=== PATIENT | female | born 1980 | race Caucasian/White ===

== ENCOUNTER 2017-10-10 04:17 | Emergency (ER) | payer MEDICAID, OTHER ==
[~2017-10-10] VITALS: Ht 154.9 cm; Wt 50.0 kg
[2017-10-10 04:20] VITALS: Ht 154.9 cm; Wt 50.0 kg
[2017-10-10] MEDS ORDERED: NAPR-260 PO (06:44)
[2017-10-10] MEDS ORDERED: BACI28.34 TOP (06:44)
--- NOTE | 2017-10-10 06:50 | ERD ---
ER Documentation Chief Complaint Chief Complaint bilat feet pain, growth on toe, "if there's time to check, vag/rectal bleed HPI 6-year-old female comes in with bilateral foot blisters, vaginal bleeding. Patient has a history of methamphetamine abuse and drinks alcohol, patient reports that she is gotten blisters on her feet over the last few days that are painful. They are to both of her feet, she denies any trauma. She also states that she has had vaginal bleeding over the last 3 days going through about 3 pads. She denies any headaches, loss conscious or vomiting associated but also has contusions to both of her eyes. ROS All systems reviewed and are negative except as per history of present illness. Medications Home Meds Active Scripts Naproxen* (Naprosyn*) 500 Mg Tablet, 500 MG PO BID Y for PAIN AND/OR INFLAMMATION, #30 TAB Prov:KURT MEHTA PA-C 10/10/17 Bacitracin* (Bacitracin Zinc Oint*) 28.35 Gm Oint, 1 APPLIC TOP BID, #1 TUB APPLI TO Prov:KURT MEHTA PA-C 10/10/17 Allergies Allergies: Coded Allergies: No Known Allergy (Unverified , 10/10/17) PMhx/Soc Medical and Surgical Hx: pt denies Medical Hx, pt denies Surgical Hx Hx Alcohol Use: Yes Hx Substance Use: Yes Hx Tobacco Use: No Smoking Status: Never smoker Physical Exam Vitals Vital Signs Date Time Temp Pulse Resp B/P Pulse Ox O2 Delivery O2 Flow Rate FiO2 10/10/17 04:20 97.3 88 18 137/84 100 Physical Exam General: Disheveled in appearance, no acute distress HEENT: Head is normocephalic, atraumatic. No scleral icterus. Pupils are equal , round, and reactive. Periorbital ecchymosis of both eyes. Extraocular movements intact. Oral mucous membranes are moist. Neck: Supple. Nontender. Lungs: Clear to auscultation. Normal air movement. Heart: Regular rate and rhythm. S1 and S2 are normal. No murmurs, gallops, or rubs. Abdomen: Soft, nontender, nondistended. Bowel sounds are normoactive. : Vaginal examination shows evidence of blood that is on the external vagina, there is no active hemorrhage. Extremities: No clubbing or cyanosis. Normal pulses. Moving extremities x 4. No weakness. Neurologic: Alert and oriented 3. No focal deficits. Skin: Both of the bottom of her feet have multiple blisters. Procedures/MDM ED course: The patient's feet are irrigated with normal saline and hydrogen peroxide. Urine is negative. Medical decision makin-year-old female comes in with periorbital contusions , and has been over a week, no neurologic symptoms, no history of loss consciousness or vomiting her eye examination is normal patient's urine is negative. She does not appear to present with active bleeding, no evidence of or ectopic , PID or cervicitis. Fever blisters are likely due to patient's lack of care of her feet, she is disheveled. We irrigated her feet, cleaned with hydrogen peroxide and she will be given bacitracin to apply. Patient also be given Naprosyn for pain. She was given resources for abuse, and housing as well as adult care. Departure Diagnosis: Primary Impression: Blister of foot Additional Impressions: Contusion, periorbital Methamphetamine abuse Condition: Good Patient Instructions: Blister, Contusion, Eye KURT MEHTA PA-C Oct 10, 2017 06:50
[2017-10-10 07:14] VITALS: BP 128/77; PULSE 80; RESP 18; TEMP 98.1
== END 2017-10-10 07:22 | disposition home or self-care (01) ==
LOC: FTE 04:17
DX: S00.11XA Contusion of right eyelid and periocular area, initial encounter (principal); S00.12XA Contusion of left eyelid and periocular area, initial encounter; R23.8 Other skin changes; F15.10 Other stimulant abuse, uncomplicated; X58.XXXA Exposure to other specified factors, initial encounter; Y92.9 Unspecified place or not applicable
CPT/HCPCS: 99284

== ENCOUNTER 2019-09-24 22:13 | Emergency (ER) | payer BC, MEDICAID ==
[~2019-09-24] VITALS: Ht 154.9 cm; Wt 53.9 kg
[~2019-09-24 22:13] MED LIST: BACI28.34 TOP; NAPR-985 PO; ONDA4TAB8 PO
[2019-09-24 22:23] VITALS: Ht 154.9 cm; Wt 53.9 kg
[2019-09-25] MEDS ORDERED: LACTATED RINGER'S 1,000 ML IV STA (02:11)
[2019-09-25] MEDS ORDERED: ONDANSETRON 4 MG INJ IV STA (02:11)
[2019-09-25] MEDS ORDERED: LORAZEPAM 2 MG INJ IV ONE (02:30)
[2019-09-25 09:09] VITALS: BP 114/69; PULSE 88; RESP 14
== END 2019-09-25 09:09 | disposition home or self-care (01) ==
LOC: E/R 22:13
DX: F10.230 Alcohol dependence with withdrawal, uncomplicated (principal); R40.2142 Coma scale, eyes open, spontaneous, at arrival to emergency department; R40.2252 Coma scale, best verbal response, oriented, at arrival to emergency department; R40.2362 Coma scale, best motor response, obeys commands, at arrival to emergency department; E86.0 Dehydration; Z87.891 Personal history of nicotine dependence
CPT/HCPCS: 36415; 80053; 81025; 83690; 85025; 96374; 96375; J2060; J2405; J7120; Z7502